=== PATIENT | male | born 1935 | race Caucasian/White ===

== ENCOUNTER → 2021-01-03 | Outpatient (CLI) | payer MEDICARE, OTHER ==
[~2021-01-03] MED LIST: VISIPAQUE 320 MG/ML, 150ML BOTTLE ONE
== END | disposition home or self-care (01) ==
LOC: CVU 09:48
PROVIDERS: ATTEND Internal Medicine Cardiovascular Disease
DX: Z01.810 Encounter for preprocedural cardiovascular examination (principal); I25.10 Atherosclerotic heart disease of native coronary artery without angina pectoris; M48.56XA Collapsed vertebra, not elsewhere classified, lumbar region, initial encounter for fracture; I65.23 Occlusion and stenosis of bilateral carotid arteries; I11.0 Hypertensive heart disease with heart failure; I44.7 Left bundle-branch block, unspecified; I50.40 Unspecified combined systolic (congestive) and diastolic (congestive) heart failure; I71.2 Thoracic aortic aneurysm, without rupture
CPT/HCPCS: 71275; 74174; 93880; Q9967

== ENCOUNTER 2021-02-20 09:26 | Outpatient (CLI) | payer MEDICARE, OTHER ==
[~2021-02-20 09:26] MED LIST changes: +ASCO500T8 PO; +CYAN-27 PO; +FURO20TA3 PO; +LEVO125T5 PO; +RIVA20TA PO; -VISIPAQUE 320 MG/ML, 150ML BOTTLE ONE
== END 2021-02-20 23:59 | disposition home or self-care (01) ==
LOC: CVU 09:26
PROVIDERS: ATTEND Internal Medicine Cardiovascular Disease
DX: Z01.810 Encounter for preprocedural cardiovascular examination (principal); I08.1 Rheumatic disorders of both mitral and tricuspid valves; I65.29 Occlusion and stenosis of unspecified carotid artery; R06.02 Shortness of breath
CPT/HCPCS: 93306